=== PATIENT | male | born 1985 | race Hispanic/Latino ===

== ENCOUNTER 2022-03-17 10:45 | Emergency (ER) | payer SELFPAY ==
[2022-03-17 11:14] VITALS: BP 103/73; PULSE 110; RESP 18; TEMP 37.4; O2SAT 97
[2022-03-17 12:12] LABS: Influenza A QL RT-PCR Positive (Negative); Influenza B QL RT-PCR Negative (Negative); SARS-CoV-2 RNA PCR Negative
--- NOTE | 2022-03-17 12:44 | ED_ITS ---
HPI - URI/Sore Throat General Chief Complaint: Upper Respiratory Infection Stated Complaint: URI Time Seen by Provider: 03/17/22 12:04 History of Present Illness HPI Narrative: Pt presents with fever, chills cough and body aches. Pt says he first noticed last week but worse since yesterday. Pt denies vomiting. Has mild sore throat but no vomiting or diarrhea. Review of Systems Review of Systems: All systems reviewed & are unremarkable except as noted in HPI and below Exam Const: General: healthy appearing Nutritional Appearance: well nourished Orientation/consciousness: patient oriented x3 Limitations: no limitations HENMT: Head: normal to inspection Ears: external ears normal and TM's normal bilaterally Face/Nose/Sinus: Nasal discharge present Mouth: Yes Normal oral and palatal mucosa present Throat: posterior oropharynx normal Eyes: EOM: EOMs intact bilaterally Neck: Neck: normal visual inspection, no lymphadenopathy and no meningeal signs Chest: Chest palpation & inspection: normal inspection of the chest Resp: Effort & Inspection: normal respiratory effort Auscultation: clear to auscultation bilaterally Cardio: Rate: regular rate Rhythm: regular rhythm GI: GI Palp: Yes Soft to palpation Auscultation: normal bowel sounds Neuro: General: patient oriented x3, moves all extremities, no meningeal signs and no focal motor deficits Cranial nerves: Yes Nystagmus not present Speech: normal speech Extrem: General: normal to inspection and no clubbing, cyanosis or edema Psych: Mental Status: mental status grossly normal Affect: normal affect Attitude: cooperative Course Vital Signs Vital signs: Vital Signs Temperature 99.4 F 03/17/22 11:14 Pulse Rate 110 H 03/17/22 11:14 Respiratory Rate 18 03/17/22 11:14 Blood Pressure 103/73 03/17/22 11:14 Pulse Oximetry 97 03/17/22 11:14 Oxygen Delivery Room Air 03/17/22 11:14 Temperature 98.7 F 03/17/22 12:58 Pulse Rate 86 03/17/22 12:58 Respiratory Rate 20 03/17/22 12:58 Blood Pressure 116/86 03/17/22 12:58 Pulse Oximetry 98 03/17/22 12:58 Oxygen Delivery Room Air 03/17/22 11:14 MDM - URI/Sore Throat Lab Data Labs: Lab Results 03/17/22 Range/Units 11:18 Influenza A (RT-PCR) Positive (Negative) Influenza B (RT-PCR) Negative (Negative) SARS-CoV-2 RNA (RT-PCR) Negative Discharge Plan Discharge Clinical Impression: Influenza Patient Disposition: Home, Self-Care Condition: Stable Instructions: Antibiotic Form, Influenza (ED) Patient Language: Sierra Leonean Follow-up/Referrals: UNKNOWN,DOCTOR [Primary Care Provider] -
[2022-03-17 12:58] VITALS: BP 116/86; PULSE 86; RESP 20; TEMP 37.1; O2SAT 98
== END 2022-03-17 13:02 | disposition home or self-care (01) ==
PROVIDERS: Emergency Medicine; Emergency Provider Emergency Medicine
DX: J10.1 Influenza due to other identified influenza virus with other respiratory manifestations (principal); Z20.822 Contact with and (suspected) exposure to COVID-19
CPT/HCPCS: 87502; 99283; U0003; U0005

== ENCOUNTER 2023-04-14 08:39 | Emergency (ER) | payer SELFPAY ==
[2023-04-14 08:41] VITALS: BP 144/82; PULSE 65; RESP 12; TEMP 36.2; O2SAT 100
--- NOTE | 2023-04-14 09:15 | ED.SKABFB ---
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 Reports he has had abnormal sensation and pain in the area over the last week. Yesterday he started to notice a rash developing. Denies fevers. Related Data Allergies Allergy/AdvReac Type Severity Reaction Status Date / Time No Known Allergies Allergy Verified 04/14/23 09:14 [facility] Past Medical History Medical History (Updated 04/14/23 @ 09:28 by Kathy Valdovinos PA-C) No active medical problems Social History Social History (Updated 04/14/23 @ 09:28 by Kathy Valdovinos PA-C) Smoking status: Never smoker Exam Narrative: GENERAL: Well-appearing, well-nourished, and in no acute distress. HEAD: Normocephalic, atraumatic. EYES: EOMI. EXTREMITIES: Normal range of motion. No edema. SKIN: Warm, dry. Vesicular rash on an erythematous base in a dermatomal pattern to the right side of the mid back NEURO: No focal deficits. Alert and oriented x3. PSYCH: Normal mood and affect Course Course Emergency Course: Patient agrees with plan of care. All questions answered Vital Signs Vital signs: Vital Signs Temperature 97.1 F L 04/14/23 08:41 Pulse Rate 65 04/14/23 08:41 Respiratory Rate 12 04/14/23 08:41 Blood Pressure 144/82 H 04/14/23 08:41 Pulse Oximetry 100 04/14/23 08:41 Oxygen Delivery Room Air 04/14/23 08:41 Temperature 97.1 F L 04/14/23 08:41 Pulse Rate 65 04/14/23 08:41 Respiratory Rate 12 04/14/23 08:41 Blood Pressure 144/82 H 04/14/23 08:41 Pulse Oximetry 100 04/14/23 08:41 Oxygen Delivery Room Air 04/14/23 08:41 MDM - Skin/Abscess/Foreign Bdy MDM Narrative Medical decision making narrative: Patient presents to the emergency department for rash present since yesterday. Rash is consistent with herpes zoster. Will be started on Valtrex. Will be given PCP for follow up. He was given warnings to return to the ER Differential Diagnosis Differential diagnosis: Likely herpes zoster, cellulitis, eczema, insect bites, impetigo and contact dermatitis Critical Care Time Critical Care Time Critical Care Time: No Discharge Plan Discharge Clinical Impression: Herpes zoster Qualifiers: Herpes zoster complications: without complications Qualified Code(s): B02.9 - Zoster without complications Patient Disposition: Home, Self-Care Condition: Stable Instructions: Shingles (ED) Additional Instructions: Return if symptoms worsen or concerns Take antiviral as directed. Clean the wounds with mild soapy water. Keep your rash covered. Tylenol or Ibuprofen as needed for pain Follow up with primary care doctor for re-evaluation Patient Language: Kazakh Prescriptions: New valacyclovir 1 gram tablet 1,000 mg PO Q8H 7 Days Qty: 21 0RF Follow-up/Referrals: Curt Porter MD [Physician] - 1 Week UNKNOWN,DOCTOR [Primary Care Provider] -
== END 2023-04-14 09:55 | disposition home or self-care (01) ==
LOC: ANHED 09:18
PROVIDERS: Emergency Provider Physician Assistant
DX: B02.9 Zoster without complications (principal)
CPT/HCPCS: 99283

== ENCOUNTER 2024-12-25 08:43 | Emergency (ER) | payer SELFPAY ==
--- NOTE | ~2024-12-25 | XR_ITS ---
XR chest 2V INDICATION: Shortness of breath and chest palpitations TECHNIQUE: 2 view chest. FINDINGS: Comparison to 09/09/2021 There is mild bilateral interstitial prominence and peribronchial cuffing. There is no focal consoli dation, pleural effusion, or pneumothorax. The cardiomediastinal silhouette is normal. IMPRESSION: 1. Findings most consistent with bronchiolitis versus an atypical or viral pneumonia. Reviewed, dictated and finalized at location A. IMPRESSION: 1. Findings most consistent with bronchiolitis versus an atypical or viral pne [facility].
--- NOTE | 2024-12-25 08:45 | ECG_ITS ---
Test Date: 2024-12-25 08:47:44 Measurements Intervals [place] Rate: 59 P: 30 MD: 131 QRS: 56 QRSD: 86 T: 73 QT: 402 QTc: 400 Interpretive Statements SINUS BRADYCARDIA MINIMAL Q WAVES- LAT/HIGH LAT LEADS BASELINE ARTIFACT- I, II, III, AVR, AVL, AVF BORDERLINE ECG No previous ECG available for comparison Electronically Signed On 12-25-2024 09:24:36 CDT by Roman Mendez D.O.
[2024-12-25 08:48] VITALS: BP 137/78; PULSE 60; RESP 12; TEMP 36.7; O2SAT 98
[2024-12-25 08:53] VITALS: PULSE 52
[2024-12-25 09:03] LABS: Hematocrit 44.1 % (42.0-52.0); Hemoglobin 15.2 g/dL (14.0-18.0); Immature Granulocyte Percent A 0.4 % (0-0.5); Lymphocytes Absolute Auto 1.45 K/mm3 (0.9-3.2); Mean Corpuscular HGB Conc 34.5 g/dl (32-36); Mean Corpuscular Hemoglobin 30.0 pg (26-34); Mean Corpuscular Volume 87.2 fl (80-100); Nucleated Red Blood Cells Absolute Auto 0.000 K/mm3 (0.0-0.012); Nucleated Red Blood Cells Perc 0.0 % (0.0-0.2); Platelet Count Result 278 k/mm3 (150-375); Red Blood Count 5.06 M/mm3 (4.6-6.20); White Blood Count 5.1 K/mm3 (4.5-10.0)
[2024-12-25] MEDS: ASPIRIN 81 MG CHEWABLE TABLET 324 MG PO (09:07)
[2024-12-25 09:14] LABS: INR 1.1; Partial Thromboplastin Time 27.0 Seconds (22.3-36.8); Prothrombin Time 14.1 Seconds (11.1-14.7)
[2024-12-25 09:16] LABS: Alanine Aminotransferase 36 U/L (6-50); Albumin Level 4.0 g/dL (3.5-5.1); Alkaline Phosphatase 102 U/L (38-126); Anion Gap 8 mmol/L (4-12); Aspartate Amino Transferase 31 U/L (17-59); Bilirubin,Total 0.5 mg/dL (0.2-1.3); Blood Urea Nitrogen 15 mg/dL (9-20); Calcium 8.6 mg/dL (8.4-10.2); Carbon Dioxide 22 mmol/L (22-30); Chloride 107 mmol/L (98-107); Estimated CRCL calculation 129 ml/min; Estimated Glomerular Filt Rate > 60; Glucose 106 mg/dL (65-110); Lipase 67 U/L (23-300); Potassium 4.1 mmol/L (3.4-5.0); Sodium 137 mmol/L (137-145); Total Protein 7.1 g/dL (6.3-8.2)
[2024-12-25 09:28] LABS: Troponin I < 0.012 ng/mL (0.000-0.034)
--- NOTE | 2024-12-25 09:32 | ED_ITS ---
HPI - Arrhythmia/Palpitations General Chief Complaint: Arrhythmia/Palpitations Stated Complaint: palpations, SOB Time Seen by Provider: 12/25/24 09:06 History of Present Illness HPI narrative: Patient is a 39-year-old non-Salvadorean speaking male who presents to the ER with complaints of intermittent heart racing since Wednesday, yesterday. This morning patient woke up and ?felt worse. Patient endorses shortness of breath with his palpitations. Reports this is never happened before to him. Patient reports he drinks 1 monster in 4-5 sodas per day. He also reports he drinks about 1/2 gal of water per day. Patient declines any lower extremity edema, recent fevers, or back pain. He denies any pertinent medical history relevant to this ER visit. Related Data Allergies Allergy/AdvReac Type Severity Reaction Status Date / Time No Known Allergies Allergy Verified 04/14/23 09:14 Review of Systems 2 Review of Systems: All systems reviewed & are unremarkable except as noted in HPI and below PMFSH Past Medical History Medical History No active medical problems Social History Social History Smoking status: Never smoker Exam 2 Narrative: GENERAL: Well appearing, well-nourished, non-toxic, in no acute distress. HEAD: Normocephalic, atraumatic. NECK: Supple. No adenopathy, no masses. RESPIRATORY: Airway patent, respirations nonlabored. Clear to auscultation bilaterally, no rales, rhonchi, wheezing. CARDIOVASCULAR: Regular rate and rhythm without murmurs, rubs, or gallops. Peripheral pulses 2+ and equal bilaterally. ABDOMINAL: Soft, nontender, nondistended, no hepatosplenomegaly. Normoactive BS. MUSCULOSKELETAL: Moves all extremities. Strength/ROM intact without gross deformities. SKIN: Warm, dry, normal color. No rashes. NEURO: A&O X3. Speech clear. Cranial nerves II-XII intact. No ataxic movements. PSYCHIATRIC: Appropriate mood and affect. Normal interaction. Course Vital Signs Vital signs: Vital Signs Temperature 36.7 C 12/25/24 08:48 Pulse Rate 60 12/25/24 08:48 Respiratory Rate 12 12/25/24 08:48 Blood Pressure 137/78 12/25/24 08:48 Pulse Oximetry 98 12/25/24 08:48 Oxygen Delivery Room Air 12/25/24 08:48 Temperature 36.7 C 12/25/24 08:48 Pulse Rate 61 12/25/24 10:52 Respiratory Rate 14 12/25/24 10:52 Blood Pressure 100/65 12/25/24 10:52 Pulse Oximetry 100 12/25/24 10:52 Oxygen Delivery Room Air 12/25/24 08:48 MDM - Arrhythmia/Palpitations MDM Narrative Medical decision making narrative: Patient is a 39-year-old non-Salvadorean speaking male who presents to the ER with complaints of intermittent heart racing since Wednesday, yesterday. This morning patient woke up and ?felt worse. Patient endorses shortness of breath with his palpitations. Upon further discussion, pt reports he has been coughing more lately. Reports this is never happened before to him. Patient reports he drinks 1 monster in 4-5 sodas per day. He also reports he drinks about 1/2 gal of water per day. Patient declines any lower extremity edema, recent fevers, or back pain. He denies any pertinent medical history relevant to this ER visit. Labs Ordered: CBC, CMP, troponin, D-dimer, lipase, PTT, INR, TSH, lactic acid Imaging Ordered: Chest x-ray Medications Ordered: 1 L normal saline IV bolus Results: Patient's chest x-ray indicates there is mild bilateral interstitial prominence and peribronchial cuffing. There is no focal consolidation, pleural effusion, or pneumothorax. The cardiomediastinal silhouette is normal. Diagnosis: Atypical pneumonia Risks: HEART score: low risk HEART Score for Major Cardiac Events from [email or web address] on 12/25/2024 All calculations should be rechecked by clinician prior to use RESULT SUMMARY: 1 points Low Score (0-3 points) Risk of MACE of 0.9-1.7%. INPUTS: History ?> 0 = Slightly suspicious EKG ?> 0 = Normal Age ?> 0 = <45 Risk factors ?> 1 = 1-2 risk factors Initial troponin ?> 0 = <Normal limit Patient Education/Shared MDM: Results of lab work and imaging shared with patient. Patient's palpations are most likely a result of his pneumonia, but patient was strongly advised to follow-up with a primary care provider for further evaluation. He will be given his 1st dose of Augmentin and Azithromycin here in the ER. Patient strongly advised to maintain hydration status upon discharge. He will be discharged home with a prescription for Augmentin and azithromycin. Patient can take Tylenol and/or ibuprofen for pain control. Strict return precautions provided. Patient verbalized understanding and is in agreement with plan. Vital signs stable at time of discharge. All questions answered. Differential Diagnosis Differential diagnosis: Likely palpitations, sinus tachycardia and other (Pneumonia) Lab Data Attestation: I reviewed the patient's lab results. 12/25/24 08:54 12/25/24 08:54 Labs: Lab Results 12/25/24 12/25/24 Range/Units 08:54 10:04 WBC 5.1 (4.5-10.0) K/mm3 RBC 5.06 (4.6-6.20) M/mm3 Hgb 15.2 (14.0-18.0) g/dL Hct 44.1 (42.0-52.0) % MCV 87.2 (80-100) fl MCH 30.0 (26-34) pg MCHC 34.5 (32-36) g/dl RDW 12.4 (11.5-14.5) % Plt Count 278 (150-375) k/mm3 MPV 9.5 (7.4-10.4) fl Immature Gran % (Auto) 0.4 (0-0.5) % Neut % (Auto) 54.7 (45.5-73.1) % Lymph % (Auto) 28.7 (18.3-44.2) % [place] % (Auto) 12.8 H (2.6-8.5) % Eos % (Auto) 2.8 (0-4.4) % Baso % (Auto) 0.6 (0.2-1.2) % Lymph # (Auto) 1.45 (0.9-3.2) K/mm3 [place] # (Auto) 0.7 H (0.1-0.6) K/mm3 Eos # (Auto) 0.1 (0-0.3) K/mm3 Baso # (Auto) 0.0 (0.0-0.1) K/mm3 Abs Immat Gran (auto) 0.02 (0.00-0.031) K/mm3 Absolute Neuts (auto) 2.8 (1.3-6.7) K/mm3 Absolute Nucleated RBC 0.000 (0.0-0.012) K/mm3 Nucleated RBC % 0.0 (0.0-0.2) % PT 14.1 (11.1-14.7) Seconds INR 1.1 APTT 27.0 (22.3-36.8) Seconds D-Dimer < 0.27 (<0.48) ug/mL Sodium 137 (137-145) mmol/L Potassium 4.1 (3.4-5.0) mmol/L Chloride 107 (98-107) mmol/L Carbon Dioxide 22 (22-30) mmol/L Anion Gap 8 (4-12) mmol/L BUN 15 (9-20) mg/dL Creatinine 0.72 (0.7-1.3) mg/dL Estim Creat Clear Calc 129 ml/min Estimated GFR > 60 (59 - ) Glucose 106 (65-110) mg/dL Lactic Acid 0.8 (0.7-2.0) mmol/L Calcium 8.6 (8.4-10.2) mg/dL Total Bilirubin 0.5 (0.2-1.3) mg/dL AST 31 (17-59) U/L ALT 36 (6-50) U/L Alkaline Phosphatase 102 (38-126) U/L Troponin I < 0.012 (0.000-0.034) ng/mL Total Protein 7.1 (6.3-8.2) g/dL Albumin 4.0 (3.5-5.1) g/dL Lipase 67 (23-300) U/L TSH (Reflex) 1.740 (0.465-4.68) uIU/mL Imaging Data Attestation: I personally reviewed and interpreted this imaging study as follows: Radiologist's impression: Impressions Chest X-Ray 12/25/24 09:27 IMPRESSION: 1. Findings most consistent with bronchiolitis versus an atypical or viral pneumonia. Discharge Plan Discharge Clinical Impression: Atypical pneumonia, Palpitations, Mild shortness of breath Patient Disposition: Home Condition: Stable Instructions: Antibiotic Form, Pneumonia (ED) Additional Instructions: Please return to the ER with any worsening symptoms. Establish care with a primary care provider as soon as possible. Complete your full dose of antibiotics. Patient Language: Bulgarian Prescriptions: New azithromycin 250 mg tablet See Rx Instructions .ROUTE .COMPLEX Qty: 6 0RF Rx Instructions: For 250 mg dose pack: take 500 mg today (day 1), then 250 mg for 4 days (days 2-5) amoxicillin-pot clavulanate 875-125 mg tablet 1 tablet PO Q12H Qty: 20 0RF No Action valacyclovir 1 gram tablet 1,000 mg PO Q8H 7 Days Qty: 21 0RF Follow-up/Referrals: UNKNOWN,DOCTOR [Primary Care Provider] - Time of Disposition: 11:11
[2024-12-25 10:52] VITALS: BP 100/65; PULSE 61; RESP 14; O2SAT 100
[2024-12-25 11:03] LABS: Thyroid Stimulating Hormone Reflex 1.740 uIU/mL (0.465-4.68)
[2024-12-25 11:55] VITALS: BP 116/70; PULSE 56; RESP 17; O2SAT 100
[2024-12-25] MEDS: AZITHROMYCIN 500 MG TABLET PO (11:56)
== END 2024-12-25 12:07 | disposition home or self-care (01) ==
PROVIDERS: Emergency Medicine; Emergency Provider Registered Nurse
DX: J18.9 Pneumonia, unspecified organism (principal); R00.2 Palpitations; R06.02 Shortness of breath; R00.1 Bradycardia, unspecified
CPT/HCPCS: 36415; 71046; 80053; 83605; 83690; 84443; 84484; 85025; 85380; 85610; 85730; 93005; 99284; A9270